=== PATIENT | female | born 1940 | race Caucasian/White ===

== ENCOUNTER → 2017-04-22 | Outpatient (REF) | payer MEDICARE, MEDICAID ==
[2017-04-22 11:52] LABS: MEAN CORPUSCULAR HEMOGLOBIN 28.4 pg (27.0-33.0); MEAN CORPUSCULAR HGB CONC 32.8 g/dl (32.0-36.5); MEAN CORPUSCULAR VOLUME 86.5 fl (80.0-96.0); RED CELL DISTRIBUTION WIDTH 13.6 % (11.5-14.5); WHITE BLOOD COUNT 5.3 K/mm3 (4.0-10.0)
[2017-04-22 12:34] LABS: BLOOD UREA NITROGEN 19 MG/DL (7-18); CREATININE FOR GFR 0.91 MG/DL (0.55-1.02); GLOMERULAR FILTRATION RATE > 60.0 (>39); GLUCOSE, FASTING 231 MG/DL (83-110)
[2017-04-22 12:35] LABS: ALKALINE PHOSPHATASE 67 U/L (45-117); ALT/SGPT 63 U/L (12-78); ANION GAP 8 MEQ/L (8-16); AST/SGOT 55 U/L (15-37); BILIRUBIN,TOTAL 0.6 MG/DL (0.2-1.0); CALCIUM LEVEL 8.8 MG/DL (8.8-10.2); CARBON DIOXIDE LEVEL 25 MEQ/L (21-32); CHLORIDE LEVEL 105 MEQ/L (98-107); CHOLESTEROL LEVEL 113 MG/DL (<200); POTASSIUM SERUM 4.5 MEQ/L (3.5-5.1); SODIUM LEVEL 138 MEQ/L (136-145); TRIGLYCERIDES LEVEL 122 MG/DL (<150)
[2017-04-22 12:36] LABS: ALBUMIN 3.2 GM/DL (3.2-5.2); ALBUMIN/GLOBULIN RATIO 0.94 (1.00-1.93); TOTAL PROTEIN 6.6 GM/DL (6.4-8.2)
== END ==
LOC: M SFHCCLAY 08:15
PROVIDERS: ATTEND Nurse Practitioner Family
DX: E11.8 Type 2 diabetes mellitus with unspecified complications (principal); I10 Essential (primary) hypertension; E78.5 Hyperlipidemia, unspecified; M10.9 Gout, unspecified; E55.9 Vitamin D deficiency, unspecified

== ENCOUNTER → 2017-12-20 | Outpatient (REF) | payer MEDICARE, MEDICAID ==
[2017-12-20 12:00] LABS: ESTIMATED AVERAGE GLUCOSE 197 MG/DL (60-110); HEMOGLOBIN A1c 8.5 %
[2017-12-20 12:09] LABS: TOTAL 25(OH) VITAMIN D 16.1 NG/ML (30.0-100.0)
[2017-12-20 12:32] LABS: CHOLESTEROL LEVEL 105 MG/DL (<200); CHOLESTEROL RISK RATIO 2.763 (<5); HDL CHOLESTEROL 38 MG/DL (>40); NON-HDL-C 67 MG/DL; TRIGLYCERIDES LEVEL 145 MG/DL (<150); URIC ACID 3.5 MG/DL (2.6-6.0)
[2017-12-20 12:49] LABS: MALB URINE SIEMENS 59.8 MG/L; MAU/CREAT RATIO 51.1 MCG/MG (0.0-30.0); TOTAL PROTEIN,RANDOM URINE 12.8 MG/DL (0.0-12.0)
== END ==
LOC: M SFHCCLAY 09:09
DX: E11.8 Type 2 diabetes mellitus with unspecified complications (principal); E78.4 Other hyperlipidemia; M10.9 Gout, unspecified; E55.9 Vitamin D deficiency, unspecified
CPT/HCPCS: 84550

== ENCOUNTER → 2018-04-14 | Outpatient (REF) | payer MEDICARE, MEDICAID ==
[2018-04-14 18:00] LABS: HEMATOCRIT 39.2 % (36.0-47.0); HEMOGLOBIN 12.6 g/dl (12.0-15.5); MEAN CORPUSCULAR HEMOGLOBIN 28.2 pg (27.0-33.0); MEAN CORPUSCULAR HGB CONC 32.1 g/dl (32.0-36.5); MEAN CORPUSCULAR VOLUME 87.7 fl (80.0-96.0); PLATELET COUNT, AUTOMATED 210 10^3/uL (150-450); RED BLOOD COUNT 4.47 10^6/uL (4.00-5.40); RED CELL DISTRIBUTION WIDTH 13.5 % (11.5-14.5); WHITE BLOOD COUNT 5.7 10^3/uL (4.0-10.0)
[2018-04-14 18:46] LABS: ALBUMIN 3.3 GM/DL (3.2-5.2); ALBUMIN/GLOBULIN RATIO 0.87 (1.00-1.93); ALKALINE PHOSPHATASE 80 U/L (45-117); ALT/SGPT 70 U/L (12-78); ANION GAP 7 MEQ/L (8-16); AST/SGOT 72 U/L (7-37); BILIRUBIN,TOTAL 0.5 MG/DL (0.2-1.0); BLOOD UREA NITROGEN 16 MG/DL (7-18); CALCIUM LEVEL 8.6 MG/DL (8.8-10.2); CARBON DIOXIDE LEVEL 25 MEQ/L (21-32); CHLORIDE LEVEL 107 MEQ/L (98-107); CHOLESTEROL LEVEL 99 MG/DL (<200); CHOLESTEROL RISK RATIO 2.828 (<5); CREATININE FOR GFR 0.89 MG/DL (0.55-1.30); GLOMERULAR FILTRATION RATE > 60.0 (>39); GLUCOSE, FASTING 199 MG/DL (70-100); HDL CHOLESTEROL 35 MG/DL (>40); LDL CHOLESTEROL 42.2 MG/DL (<100); NON-HDL-C 64 MG/DL; POTASSIUM SERUM 4.5 MEQ/L (3.5-5.1); SODIUM LEVEL 139 MEQ/L (136-145); TOTAL PROTEIN 7.1 GM/DL (6.4-8.2); TRIGLYCERIDES LEVEL 109 MG/DL (<150); URIC ACID 3.5 MG/DL (2.6-6.0)
[2018-04-14 18:50] LABS: ESTIMATED AVERAGE GLUCOSE 214 MG/DL (60-110); HEMOGLOBIN A1c 9.1 %; TOTAL 25(OH) VITAMIN D 15.8 NG/ML (30.0-100.0)
== END ==
LOC: M SFHCCLAY 10:23
DX: E11.8 Type 2 diabetes mellitus with unspecified complications (principal); I10 Essential (primary) hypertension; E78.5 Hyperlipidemia, unspecified; M10.9 Gout, unspecified; E55.9 Vitamin D deficiency, unspecified; Z79.899 Other long term (current) drug therapy
CPT/HCPCS: 84550

== ENCOUNTER → 2018-07-15 | Outpatient (REF) | payer MEDICARE, MEDICAID | LOC: M SFHCCLAY 13:43 | DX: L03.115 Cellulitis of right lower limb (principal) | CPT/HCPCS: 87186 ==

== ENCOUNTER 2018-11-15 12:21 | Emergency (ER) | payer MEDICARE, MEDICAID ==
[~2018-11-15] VITALS: Ht 162.6 cm; Wt 117.8 kg
[2018-11-15] MEDS ORDERED: ALLO100T PO (12:35)
[2018-11-15] MEDS ORDERED: INVO300T PO (12:35)
[2018-11-15] MEDS ORDERED: METF10004 PO (12:35)
[2018-11-15] MEDS ORDERED: [UNRECOGNIZED DRUG - CODE] PO (12:35)
[2018-11-15] MEDS ORDERED: CALC600T57 PO (12:35)
[2018-11-15] MEDS ORDERED: LOSA50TA88 PO (12:35)
[2018-11-15] MEDS ORDERED: SIMV40TA2 PO (12:35)
[2018-11-15] MEDS ORDERED: HYDR25TAB PO (12:35)
[2018-11-15] MEDS ORDERED: IBUP-1022 PO (13:06)
[2018-11-15] MEDS ORDERED: SOMA350T PO (13:06)
[2018-11-15 13:08] VITALS: BP 200/80
== END 2018-11-15 13:19 | disposition home or self-care (01) ==
LOC: M ED 12:21
DX: M54.12 Radiculopathy, cervical region (principal); E11.9 Type 2 diabetes mellitus without complications; I10 Essential (primary) hypertension

== ENCOUNTER → 2018-11-17 | Outpatient (CLI) | payer MEDICARE, MEDICAID ==
[~2018-11-17] MED LIST: ALLO100T PO; CALC600T57 PO; HYDR25TAB PO; IBUP-1022 PO; INVO300T PO; LOSA50TA88 PO; METF10004 PO; SIMV40TA2 PO; SOMA350T PO; [UNRECOGNIZED DRUG - CODE] PO
--- NOTE | 2018-11-17 14:55 | REP ---
CERVICAL SPINE, EIGHT VIEWS:HISTORY: Fall. The cervical spine is visualized from C1 to C7 in the lateral radiographs. There is no acute fracture or subluxation. The C5-6 and C6-7 intervertebral discs are decreased in height consistent with disc degeneration. Osteophytes are present on C4 through 7. There is narrowing of the right C5 and 6 neural foramina secondary to uncinate process hypertrophy. The left neural foramina are poorly seen. IMPRESSION:Degenerative change as described above.
--- NOTE | 2018-11-17 14:57 | REP ---
LEFT HUMERUS, THREE VIEWS: HISTORY: Fall. There is no acute fracture or dislocation. There is narrowing of the shoulder joint spaces. Osteophytes are present at the acromioclavicular joint and on the posterior ulna. IMPRESSION: There is no acute fracture or dislocation.
== END ==
LOC: M CLY 14:11
PROVIDERS: ATTEND Nurse Practitioner Family
DX: M50.322 Other cervical disc degeneration at C5-C6 level (principal); M50.323 Other cervical disc degeneration at C6-C7 level; M25.78 Osteophyte, vertebrae; M25.712 Osteophyte, left shoulder; S49.92XD Unspecified injury of left shoulder and upper arm, subsequent encounter
CPT/HCPCS: 72050; 73060; G0463

== ENCOUNTER → 2019-01-03 | Outpatient (REF) | payer MEDICARE, MEDICAID ==
[2019-01-03 18:27] LABS: ALBUMIN 3.3 GM/DL (3.2-5.2); ALT/SGPT 55 U/L (12-78); BILIRUBIN,TOTAL 0.4 MG/DL (0.2-1.0); BLOOD UREA NITROGEN 20 MG/DL (7-18); CARBON DIOXIDE LEVEL 25 MEQ/L (21-32); CHLORIDE LEVEL 106 MEQ/L (98-107); CREATININE FOR GFR 0.76 MG/DL (0.55-1.30); GLOMERULAR FILTRATION RATE > 60.0 (>39); GLUCOSE, FASTING 157 MG/DL (70-100); POTASSIUM SERUM 4.6 MEQ/L (3.5-5.1); SODIUM LEVEL 138 MEQ/L (136-145); TOTAL PROTEIN 7.2 GM/DL (6.4-8.2)
== END ==
LOC: M SFHCCLAY 12:19
PROVIDERS: ATTEND Nurse Practitioner Family
DX: S19.9XXD Unspecified injury of neck, subsequent encounter (principal)
CPT/HCPCS: 80053; G0463

== ENCOUNTER → 2019-04-25 | Outpatient (REF) | payer MEDICARE, MEDICAID ==
[~2019-04-25] MED LIST changes: +FENO54TA14 PO; -[UNRECOGNIZED DRUG - CODE] PO
[2019-04-25 13:16] LABS: CREATININE, URINE 99.3 MG/DL; MALB URINE SIEMENS 94.3 MG/L; MAU/CREAT RATIO 94.9 MCG/MG (0.0-30.0)
[2019-04-25 13:28] LABS: ALBUMIN 2.9 GM/DL (3.2-5.2); ALT/SGPT 66 U/L (12-78); BILIRUBIN,TOTAL 0.4 MG/DL (0.2-1.0); BLOOD UREA NITROGEN 16 MG/DL (7-18); CALCIUM LEVEL 8.4 MG/DL (8.8-10.2); CARBON DIOXIDE LEVEL 23 MEQ/L (21-32); CHLORIDE LEVEL 109 MEQ/L (98-107); CHOLESTEROL LEVEL 96 MG/DL (<200); CHOLESTEROL RISK RATIO 2.909 (<5); CREATININE FOR GFR 0.78 MG/DL (0.55-1.30); GLOMERULAR FILTRATION RATE > 60.0 (>39); GLUCOSE, FASTING 156 MG/DL (70-100); HDL CHOLESTEROL 33 MG/DL (>40); LDL CHOLESTEROL 42 MG/DL (<100); NON-HDL-C 63 MG/DL; POTASSIUM SERUM 4.5 MEQ/L (3.5-5.1); SODIUM LEVEL 140 MEQ/L (136-145); TOTAL 25(OH) VITAMIN D 15.2 NG/ML (30.0-100.0); TRIGLYCERIDES LEVEL 106 MG/DL (<150); URIC ACID 3.7 MG/DL (2.6-6.0)
[2019-04-25 14:26] LABS: HEMOGLOBIN A1c 8.3 %
== END ==
LOC: M SFHCCLAY 07:44
PROVIDERS: ATTEND Nurse Practitioner Family
DX: E11.8 Type 2 diabetes mellitus with unspecified complications (principal); E78.5 Hyperlipidemia, unspecified; M10.9 Gout, unspecified; E55.9 Vitamin D deficiency, unspecified

== ENCOUNTER → 2019-05-04 | Outpatient (CLI) | payer MEDICARE, MEDICAID ==
--- NOTE | 2019-05-04 09:25 | REP ---
RIGHT UPPER QUADRANT ULTRASOUND: Real-time sonographic evaluation of the right upper quadrant performed. Gallbladder has been surgically removed. There is no intrahepatic or extrahepatic biliary dilatation, common bile duct measuring 6 mm. The liver is enlarged measuring 22 cm in the midclavicular line, no gross mass. There is increased echotexture diffusely suggesting diffuse fibrofatty infiltration. Visualized pancreas is grossly unremarkable and not optimally visualized due to overlying bowel gas. Right kidney demonstrates no hydronephrosis with normal size 10.8 cm in length. No ascites is seen. IMPRESSION: Status post cholecystectomy without biliary dilatation or free fluid. Hepatomegaly, length of the liver is 22 cm, with findings compatible with diffuse fibrofatty infiltration. Electronically Signed by Suraj Dorman MD 05/04/2019 09:27 A
== END ==
LOC: M RAD 07:59
PROVIDERS: ATTEND Nurse Practitioner Family
DX: R16.0 Hepatomegaly, not elsewhere classified (principal); R94.5 Abnormal results of liver function studies

== ENCOUNTER → 2019-10-09 | Outpatient (CLI) | payer MEDICARE, MEDICAID | LOC: M RAD 06:45 | PROVIDERS: ATTEND Nurse Practitioner Family | DX: Z13.6 Encounter for screening for cardiovascular disorders (principal); Z79.899 Other long term (current) drug therapy; R93.9 Diagnostic imaging inconclusive due to excess body fat of patient ==

== ENCOUNTER → 2019-12-25 | Outpatient (REF) | payer MEDICARE, MEDICAID ==
[~2019-12-25] MED LIST changes: -SIMV40TA2 PO; +SIMV40TA20 PO
== END ==
LOC: M LAB REF 11:48
PROVIDERS: ATTEND Surgery
DX: L72.3 Sebaceous cyst (principal)

== ENCOUNTER → 2020-01-23 | Outpatient (REF) | payer MEDICARE, MEDICAID ==
[2020-01-23 12:20] LABS: ALBUMIN 3.1 GM/DL (3.2-5.2); BILIRUBIN,DIRECT 0.2 MG/DL (0.0-0.2); BILIRUBIN,TOTAL 0.4 MG/DL (0.2-1.0); CHOLESTEROL RISK RATIO 3.121 (<5); TOTAL 25(OH) VITAMIN D 20.3 NG/ML (30.0-100.0); TOTAL PROTEIN 7.3 GM/DL (6.4-8.2)
[2020-01-23 12:43] LABS: MAU/CREAT RATIO 145.5 MCG/MG (0.0-30.0)
[2020-01-23 19:31] LABS: HEMOGLOBIN A1c 7.3 %
== END ==
LOC: M SFHCCLAY 08:23
PROVIDERS: ATTEND Nurse Practitioner Family
DX: E11.8 Type 2 diabetes mellitus with unspecified complications (principal); E78.5 Hyperlipidemia, unspecified; M10.9 Gout, unspecified; E55.9 Vitamin D deficiency, unspecified; Z79.899 Other long term (current) drug therapy

== ENCOUNTER → 2020-05-07 | Outpatient (REF) | payer MEDICARE, MEDICAID ==
[2020-05-07 16:24] LABS: ALBUMIN 3.1 GM/DL (3.2-5.2); ALT/SGPT 56 U/L (12-78); BILIRUBIN,TOTAL 0.9 MG/DL (0.2-1.0); BLOOD UREA NITROGEN 18 MG/DL (7-18); CALCIUM LEVEL 9.2 MG/DL (8.8-10.2); CARBON DIOXIDE LEVEL 26 MEQ/L (21-32); CHLORIDE LEVEL 106 MEQ/L (98-107); CHOLESTEROL LEVEL 134 MG/DL (<200); CHOLESTEROL RISK RATIO 4.322 (<5); CREATININE FOR GFR 0.83 MG/DL (0.55-1.30); GLOMERULAR FILTRATION RATE > 60.0 (>39); GLUCOSE, FASTING 136 MG/DL (70-100); HDL CHOLESTEROL 31 MG/DL (>40); LDL CHOLESTEROL 78 MG/DL (<100); NON-HDL-C 103 MG/DL; POTASSIUM SERUM 4.1 MEQ/L (3.5-5.1); SODIUM LEVEL 137 MEQ/L (136-145); TOTAL PROTEIN 7.7 GM/DL (6.4-8.2); TRIGLYCERIDES LEVEL 124 MG/DL (<150)
[2020-05-07 16:28] LABS: HEMATOCRIT 40.5 % (36.0-47.0); HEMOGLOBIN 12.8 g/dl (12.0-15.5); MEAN CORPUSCULAR HEMOGLOBIN 28.3 pg (27.0-33.0); MEAN CORPUSCULAR HGB CONC 31.6 g/dl (32.0-36.5); MEAN CORPUSCULAR VOLUME 89.4 fl (80.0-96.0); PLATELET COUNT, AUTOMATED 203 10^3/uL (150-450); RED BLOOD COUNT 4.53 10^6/uL (4.00-5.40); WHITE BLOOD COUNT 4.9 10^3/uL (4.0-10.0)
[2020-05-08 08:51] LABS: TOTAL 25(OH) VITAMIN D 20.6 NG/ML (30.0-100.0)
== END ==
LOC: M SFHCCLAY 10:35
PROVIDERS: ATTEND Nurse Practitioner Family
DX: I10 Essential (primary) hypertension (principal); E11.8 Type 2 diabetes mellitus with unspecified complications; E78.5 Hyperlipidemia, unspecified; M10.9 Gout, unspecified; E55.9 Vitamin D deficiency, unspecified
CPT/HCPCS: 80053; 80061; 82306; 83036; 84550; 85027; G0463

== ENCOUNTER → 2021-04-16 | Outpatient (REF) | payer MEDICARE, MEDICAID ==
[~2021-04-16] MED LIST changes: +HYDR-3490 PO; -HYDR25TAB PO
[2021-04-16 11:43] LABS: HEMATOCRIT 36.5 % (36.0-47.0); HEMOGLOBIN 11.7 g/dl (12.0-15.5); MEAN CORPUSCULAR HEMOGLOBIN 29.8 pg (27.0-33.0); MEAN CORPUSCULAR HGB CONC 32.1 g/dl (32.0-36.5); MEAN CORPUSCULAR VOLUME 93.1 fl (80.0-96.0); PLATELET COUNT, AUTOMATED 183 10^3/uL (150-450); RED BLOOD COUNT 3.92 10^6/uL (4.00-5.40); WHITE BLOOD COUNT 4.1 10^3/uL (4.0-10.0)
[2021-04-16 12:04] LABS: HEMOGLOBIN A1c 5.7 %
[2021-04-16 12:24] LABS: ALBUMIN 2.5 GM/DL (3.2-5.2); ALT/SGPT 51 U/L (12-78); BILIRUBIN,TOTAL 0.9 MG/DL (0.2-1.0); BLOOD UREA NITROGEN 13 MG/DL (7-18); CALCIUM LEVEL 8.4 MG/DL (8.8-10.2); CARBON DIOXIDE LEVEL 25 MEQ/L (21-32); CHLORIDE LEVEL 110 MEQ/L (98-107); CHOLESTEROL LEVEL 88 MG/DL (<200); CHOLESTEROL RISK RATIO 2.838 (<5); CREATININE FOR GFR 0.76 MG/DL (0.55-1.30); GLOMERULAR FILTRATION RATE > 60.0 (>39); GLUCOSE, FASTING 120 MG/DL (70-100); HDL CHOLESTEROL 31 MG/DL (>40); LDL CHOLESTEROL 43 MG/DL (<100); NON-HDL-C 57 MG/DL; SODIUM LEVEL 141 MEQ/L (136-145); TOTAL PROTEIN 6.9 GM/DL (6.4-8.2); TRIGLYCERIDES LEVEL 71 MG/DL (<150)
[2021-04-16 12:35] LABS: MALB URINE SIEMENS 56.1 MG/L; MAU/CREAT RATIO 47.9 MCG/MG (0.0-30.0)
[2021-04-16 13:13] LABS: TOTAL 25(OH) VITAMIN D 17.7 NG/ML (30.0-100.0)
== END ==
LOC: M SFHCCLAY 08:32
PROVIDERS: ATTEND Nurse Practitioner Family
DX: E11.8 Type 2 diabetes mellitus with unspecified complications (principal); E78.5 Hyperlipidemia, unspecified; M10.9 Gout, unspecified; I10 Essential (primary) hypertension; L71.9 Rosacea, unspecified; Z79.899 Other long term (current) drug therapy

== ENCOUNTER → 2021-05-01 | Outpatient (REF) | payer MEDICARE, MEDICAID ==
[2021-05-01 16:56] LABS: ALBUMIN 2.5 GM/DL (3.2-5.2); BLOOD UREA NITROGEN 13 MG/DL (7-18); CALCIUM LEVEL 8.3 MG/DL (8.8-10.2); CARBON DIOXIDE LEVEL 25 MEQ/L (21-32); CHLORIDE LEVEL 110 MEQ/L (98-107); CREATININE FOR GFR 0.72 MG/DL (0.55-1.30); GLOMERULAR FILTRATION RATE > 60.0 (>39); GLUCOSE, FASTING 146 MG/DL (70-100); PHOSPHORUS LEVEL 2.9 MG/DL (2.5-4.9); POTASSIUM SERUM 4.1 MEQ/L (3.5-5.1); SODIUM LEVEL 140 MEQ/L (136-145)
== END ==
LOC: M SFHCCLAY 10:31
PROVIDERS: ATTEND Nurse Practitioner Family
DX: I10 Essential (primary) hypertension (principal)
CPT/HCPCS: 80069; G0463

== ENCOUNTER → 2021-05-20 | Outpatient (POV) | payer MEDICARE, MEDICAID ==
[~2021-05-20] VITALS: Ht 160 cm; Wt 115.4 kg
[2021-05-20 09:20] VITALS: BP 164/72
--- NOTE | 2021-05-22 13:58 | IRCOV ---
[facility] IR Consult Office Visit IR Consult Office Visit DATE: May 20, 2021 REASON FOR CONSULTATION/CHIEF COMPLAINT: Burning pain on bottom of both feet. HISTORY OF PRESENT ILLNESS: 81-year-old female with diabetes, hypertension and gout, complains of burning and painful sensation at the bottom of both her feet. She states her right leg is worse than her left leg. She states this is constant with no aggravating or relieving factors. She describes that she previously had a right lower extremity vein ablated in 2013 in [place]. This did not change her symptoms at all. She states she feels better when she is standing on her feet. She is not very ambulatory. She walks with a walker. She denies rest pain with leg elevation or intermittent claudication. She denies prior ulcer, cold leg, gangrene or amputations. She is not a smoker. Patient denies chest pain, shortness of breath, orthopnea or paroxysmal nocturnal dyspnea. No prior heart attack or stroke. ALLERGIES: Please see below. HOME MEDICATIONS: Please see below. PAST MEDICAL HISTORY: Diabetes Hypertension Gout Arthritis Fatty liver PAST SURGICAL HISTORY: Gallbladder surgery Ventral hernia repair Left arm sebaceous cyst removal FAMILY HISTORY: Noncontributory. SOCIAL HISTORY: Nonsmoker. Denies alcohol or drugs. REVIEW OF SYSTEMS: Otherwise negative. PHYSICAL EXAMINATION: VITAL SIGNS: Please see below. GENERAL APPEARANCE: Appears well. Comfortable at rest. HEENT: No scleral icterus. RESPIRATORY: Normal breathing at rest. CARDIOVASCULAR: Normal rate. ABDOMEN: Obese. Soft nontender. EXTREMITIES: Left lower extremity: warm to touch. Normal color. Femoral pulse + Good popliteal pulse 2+ DP/PT 1+. Motor 4 out of 5. Sensation intact. No ulcers. No gangrene. Right lower extremity: Normal color and temperature. Femoral pulse 2+ popliteal pulses 2+ DP/PT +. Motor 4 out of 5. Sensation intact. No ulcers. No gangrene. NEUROLOGICAL: Alert and oriented. PSYCHIATRIC: Appropriate to circumstance. LABORATORY DATA: 04/16/2021 hemoglobin 11.7 hematocrit 36.5 WBC 4.1 platelets 183 sodium 140 potassium 4.1 BUN 13 creatinine 0.72 GFR greater than 60 hemoglobin A1c 5.7 LDL 43 Imaging: No pertinent imaging available. ASSESSMENT/PLAN: 81-year-old diabetic female, complaining of right greater than left, lower extremity pain and burning sensation at the bottom of her feet. Arterial examination appears unremarkable. She is known to have prior saphenous vein reflux, which was reportedly treated, without any change in symptomatology. She not interested in any further workup for venous insufficiency. The burning pain may be related to her diabetes and/or plantar fasciitis. No clinical indication at present for further arterial or venous intervention. I spent 30 minutes reviewing patient's records and in consultation with the patient. Thank you for this referral. Cc Ginette Sandoval CLINICAL PSYCHOLOGY PROFESSOR Allergies Coded Allergies: No Known Allergies (Verified , 05/21/03) Uncoded Allergies: NKA (Allergy, Unknown, 05/21/03) Home Medications Scheduled Allopurinol (Allopurinol), 1 TAB PO DAILY, (Reported) Calcium Carbonate/Vitamin D3 (Calcium 600-Vit D3 200 Tablet), 1 TAB PO DAILY, (Reported) Canagliflozin (Invokana), 1 TAB PO DAILY, (Reported) Fenofibrate (Fenofibrate), 160 MG PO DAILY, (Reported) Hydrochlorothiazide (Hydrochlorothiazide), 1 TAB PO DAILY, (Reported) Losartan Potassium (Losartan Potassium), 1 TAB PO DAILY, (Reported) Metformin HCl (Metformin HCl), 1 TAB PO BID, (Reported) Simvastatin (Simvastatin), 1 TAB PO QPM, (Reported) Scheduled PRN Carisoprodol (Soma), 350 MG PO Q8HP PRN for PAIN Ibuprofen (Ibuprofen), 600 MG PO Q6H PRN for PAIN VS, I&O, 24H, Fishbone Vital Signs/I&O Vital Signs Date Time Temp Pulse Resp B/P (MAP) Pulse Ox O2 Delivery O2 Flow Rate FiO2 05/20/21 09:20 97.9 63 18 164/72 (102) 96 Room Air GABRIEL GUZMÁN MD May 22, 2021 13:58
== END ==
LOC: M IRPOV 09:09
PROVIDERS: ATTEND Radiology Diagnostic Radiology
DX: I87.2 Venous insufficiency (chronic) (peripheral) (principal); E11.9 Type 2 diabetes mellitus without complications; I10 Essential (primary) hypertension; M10.9 Gout, unspecified; M12.9 Arthropathy, unspecified; K76.0 Fatty (change of) liver, not elsewhere classified; R20.2 Paresthesia of skin; Z79.84 Long term (current) use of oral hypoglycemic drugs; Z79.899 Other long term (current) drug therapy

== ENCOUNTER → 2021-11-26 | Outpatient (REF) | payer MEDICARE, MEDICAID ==
[~2021-11-26] MED LIST changes: +ALLO300T2 PO; +ATEN50TA2 PO; +CALC1TAB30 PO; +FENO160T10 PO; +LOSA50TA28 PO; -LOSA50TA88 PO; +METF-877 PO; +TRAD5TAB PO
== END ==
LOC: M SFHCCLAY 14:14
PROVIDERS: ATTEND Physician Assistant
DX: R53.83 Other fatigue (principal); E11.8 Type 2 diabetes mellitus with unspecified complications; E78.5 Hyperlipidemia, unspecified; M10.9 Gout, unspecified; E55.9 Vitamin D deficiency, unspecified
CPT/HCPCS: 80053; 80061; 82306; 83036; 84439; 84443; 84550; 85025; G0463

== ENCOUNTER → 2021-12-02 | Outpatient (CLI) | payer MEDICARE, MEDICAID ==
[~2021-12-02] MED LIST changes: +GASTROGRAFIN SOLUTION 30ML (Q9963) As Ordered ONE; +ISOVUE-370 76% 100ML VIAL As Ordered ONE
[2021-12-02 15:36] LABS: BASO % 0.2 % (0.0-1.0); EOS % 0.2 % (0.0-3.0); HEMATOCRIT 35.6 % (36.0-47.0); HEMOGLOBIN 12.1 g/dl (12.0-15.5); LYMPH # 0.7 10^3/uL (1.5-5.0); LYMPH % 16.9 % (24.0-44.0); MEAN CORPUSCULAR HEMOGLOBIN 30.8 pg (27.0-33.0); MEAN CORPUSCULAR VOLUME 90.6 fl (80.0-96.0); MONO # 0.6 10^3/uL (0.0-0.8); MONO % 15.4 % (2.0-8.0); NEUTROPHILS # 2.8 10^3/uL (1.5-8.5); NEUTROPHILS % 66.6 % (36.0-66.0); PLATELET COUNT, AUTOMATED 118 10^3/uL (150-450); RED BLOOD COUNT 3.93 10^6/uL (4.00-5.40); WHITE BLOOD COUNT 4.2 10^3/uL (4.0-10.0)
== END ==
LOC: M RAD 14:04
PROVIDERS: ATTEND Physician Assistant
DX: R18.8 Other ascites (principal); D70.9 Neutropenia, unspecified
CPT/HCPCS: 36415; 74177; 85025; 87389; Q9963; Q9967

== ENCOUNTER 2021-12-03 19:40 | Inpatient (IN) | payer MEDICARE, MEDICAID ==
[~2021-12-03] VITALS: Ht 167.6 cm; Wt 112.3 kg
[~2021-12-03 19:40] MED LIST changes: -ALLO300T2 PO; -ATEN50TA2 PO; -CALC1TAB30 PO; -FENO160T10 PO; -GASTROGRAFIN SOLUTION 30ML (Q9963) As Ordered ONE; -ISOVUE-370 76% 100ML VIAL As Ordered ONE; -METF-877 PO; -TRAD5TAB PO
[2021-12-03] MEDS: METOPROLOL 5 MG/5 ML VIAL IV SCH ×3 (20:55→22:22)
[2021-12-03 21:13] LABS: BASO % 0.2 % (0.0-1.0); EOS % 0.7 % (0.0-3.0); HEMATOCRIT 35.4 % (36.0-47.0); HEMOGLOBIN 12.1 g/dl (12.0-15.5); LYMPH # 0.5 10^3/uL (1.5-5.0); LYMPH % 9.2 % (24.0-44.0); MEAN CORPUSCULAR HEMOGLOBIN 30.7 pg (27.0-33.0); MEAN CORPUSCULAR HGB CONC 34.2 g/dl (32.0-36.5); MEAN CORPUSCULAR VOLUME 89.8 fl (80.0-96.0); MONO # 0.5 10^3/uL (0.0-0.8); MONO % 8.3 % (2.0-8.0); NEUTROPHILS # 4.8 10^3/uL (1.5-8.5); NEUTROPHILS % 80.9 % (36.0-66.0); PLATELET COUNT, AUTOMATED 107 10^3/uL (150-450); RED BLOOD COUNT 3.94 10^6/uL (4.00-5.40); WHITE BLOOD COUNT 5.9 10^3/uL (4.0-10.0)
[2021-12-03 21:26] LABS: INR 1.36; PROTHROMBIN TIME 17.2 SECONDS (12.7-14.5)
[2021-12-03 21:27] LABS: PARTIAL THROMBOPLASTIN TIME 44.2 SECONDS (25.9-37.0)
[2021-12-03 21:45] LABS: ALBUMIN 2.4 GM/DL (3.2-5.2); BILIRUBIN,DIRECT 1.3 MG/DL (0.0-0.2); BILIRUBIN,TOTAL 1.9 MG/DL (0.2-1.0); CALCIUM LEVEL 8.3 MG/DL (8.8-10.2); CREATININE FOR GFR 1.43 MG/DL (0.55-1.30); GLOMERULAR FILTRATION RATE 37.7 (>39); MAGNESIUM LEVEL 1.6 MG/DL (1.8-2.4); POTASSIUM SERUM 3.2 MEQ/L (3.5-5.1); TOTAL PROTEIN 6.8 GM/DL (6.4-8.2)
[2021-12-03 21:57] LABS: CK-MB VALUE MASS 2.6 NG/ML (<3.6); MB/CK RELATIVE INDEX 2.3 (< OR =4)
[2021-12-03] MEDS ORDERED: POTASSIUM CHLORIDE 10% LIQ 20 MEQ/15 ML UDC PO ONE (22:15)
[2021-12-03] MEDS ORDERED: MAGNESIUM OXIDE 400MG TAB (MAG-OX) PO ONE (22:15)
[2021-12-03] MEDS ORDERED: GLUCOSE 4GM CHEW TABLET PO PRN (23:00)
[2021-12-03] MEDS ORDERED: GLUCAGON INJ 1MG VIAL SC PRN (23:00)
[2021-12-03] MEDS ORDERED: HEPARIN SOD (PORCINE) 5000UNITS/ML 1ML VIAL/SYRINGE IV PRN (23:00)
[2021-12-03] MEDS ORDERED: DEXTROSE 50% 50 ML SYRINGE IV PRN (23:00)
[2021-12-03 23:25] LABS: FIBRINOGEN 156 MG/DL (268-480)
[2021-12-03] MEDS ORDERED: HYDR-3490 PO (23:25)
[2021-12-03] MEDS ORDERED: ATEN50TA2 PO (23:25)
[2021-12-03] MEDS ORDERED: CALC1TAB30 PO (23:25)
[2021-12-03] MEDS ORDERED: ALLO300T2 PO (23:25)
[2021-12-03] MEDS ORDERED: FENO160T10 PO (23:25)
[2021-12-03] MEDS ORDERED: METF-877 PO (23:25)
[2021-12-03] MEDS ORDERED: TRAD5TAB PO (23:25)
[2021-12-03] MEDS ORDERED: HOME MED LIST COMPLETE! XX SCH (23:30)
[2021-12-03] MEDS ORDERED: HEPARIN DRIP 25,000 UNITS in IV 1 EA IV SCH (23:30)
[2021-12-03] MEDS ORDERED: cefTRIAXone SOD 1 GM in D5W MINI-BAG PLUS 50 ML IV ONE (23:30)
[2021-12-03 23:54] LABS: C REACTIVE PROTEIN QUANTITATIV 11.3 MG/DL (0.00-0.30)
[2021-12-04] VITALS (31 sets, daily range): BP systolic 69–144; BP diastolic 48–92
[2021-12-04 00:04] LABS: D-DIMER QUANT > 4000.00 ng/ml (<500)
[2021-12-04] MEDS ORDERED: DIGOXIN INJ 0.5 MG/2 ML AMP (J1160) IV STA (00:26)
[2021-12-04 01:06] LABS: CK-MB VALUE MASS 2.1 NG/ML (<3.6); MB/CK RELATIVE INDEX 2.33 (< OR =4)
[2021-12-04] MEDS ORDERED: NS 1,000 ML IV SCH (01:50)
[2021-12-04] MEDS ORDERED: NS 250 ML IV ONE ×2 (04:15→04:45)
[2021-12-04] MEDS ORDERED: NS 500 ML IV ONE ×2 (05:10→14:10)
[2021-12-04] MEDS ORDERED: diltiaZEM 125 MG in NS 100 ML IV SCH (06:00)
[2021-12-04 07:00] LABS: HEMATOCRIT 36.1 % (36.0-47.0); HEMOGLOBIN 12.3 g/dl (12.0-15.5); MEAN CORPUSCULAR HEMOGLOBIN 30.7 pg (27.0-33.0); MEAN CORPUSCULAR HGB CONC 34.1 g/dl (32.0-36.5); PLATELET COUNT, AUTOMATED 114 10^3/uL (150-450); RED BLOOD COUNT 4.01 10^6/uL (4.00-5.40); WHITE BLOOD COUNT 8.9 10^3/uL (4.0-10.0)
[2021-12-04 07:15] LABS: CALCIUM LEVEL 7.5 MG/DL (8.8-10.2); CREATININE FOR GFR 1.38 MG/DL (0.55-1.30); GLOMERULAR FILTRATION RATE 39.3 (>39); MAGNESIUM LEVEL 1.5 MG/DL (1.8-2.4); POTASSIUM SERUM 3.2 MEQ/L (3.5-5.1)
[2021-12-04] MEDS: HumaLOG INSULIN (NovoLOG) PER UNIT SC SCH ×4 (07:30→20:25)
[2021-12-04 07:33] LABS: ANISOCYTOSIS 1+; ATYPICAL LYMPH 1 % (0-5); LYMPHOCYTES 2 % (16-44); MONOCYTES 8 % (0-5); NEUTROPHILS 89 % (28-66); PLATELET ESTIMATE DECREASED (NORMAL)
[2021-12-04] MEDS: SPIRONOLACTONE 25 MG TAB PO SCH (08:44)
[2021-12-04] MEDS ORDERED: POTASSIUM CHLORIDE 10MEQ SR TABLET PO ONE (08:45)
[2021-12-04] MEDS ORDERED: DIGOXIN INJ 0.5 MG/2 ML AMP (J1160) IV SCH (08:45)
[2021-12-04] MEDS ORDERED: HEPARIN SOD (PORCINE) 5000UNITS/ML 1ML VIAL/SYRINGE IV PRN (08:45)
[2021-12-04] MEDS ORDERED: FUROSEMIDE 40MG/4ML VIAL (J1940) IV SCH (09:00)
[2021-12-04] MEDS ORDERED: cefTRIAXone SOD 1 GM in D5W MINI-BAG PLUS 50 ML IV SCH (09:00)
[2021-12-04] MEDS: MAG SULF 1GM/100ML (MAG RUN) 1 GM in IV 1 EA IV SCH ×2 (09:21→10:38)
[2021-12-04 09:34] LABS: HEMATOCRIT 36.8 % (36.0-47.0); HEMOGLOBIN 12.6 g/dl (12.0-15.5); MEAN CORPUSCULAR HEMOGLOBIN 30.4 pg (27.0-33.0); MEAN CORPUSCULAR HGB CONC 34.2 g/dl (32.0-36.5); MEAN CORPUSCULAR VOLUME 88.7 fl (80.0-96.0); PLATELET COUNT, AUTOMATED 108 10^3/uL (150-450); RED BLOOD COUNT 4.15 10^6/uL (4.00-5.40); WHITE BLOOD COUNT 10.6 10^3/uL (4.0-10.0)
[2021-12-04] MEDS: HEPARIN DRIP 25,000 UNITS in IV 1 EA IV SCH (10:41)
[2021-12-04] MEDS: PIPERACILLIN/TAZOBACTAM SOD 4.5 GM in D5W MINI-BAG PLUS 50 ML IV SCH ×3 (12:36→23:22)
[2021-12-04] MEDS ORDERED: FUROSEMIDE 100MG/10ML VIAL (J1940) IV ONE (16:30)
[2021-12-04 16:31] LABS: BASO % 0.2 % (0.0-1.0); EOS % 0.1 % (0.0-3.0); HEMATOCRIT 34.1 % (36.0-47.0); HEMOGLOBIN 11.8 g/dl (12.0-15.5); LYMPH # 0.8 10^3/uL (1.5-5.0); LYMPH % 6.3 % (24.0-44.0); MEAN CORPUSCULAR HEMOGLOBIN 30.9 pg (27.0-33.0); MEAN CORPUSCULAR HGB CONC 34.6 g/dl (32.0-36.5); MEAN CORPUSCULAR VOLUME 89.3 fl (80.0-96.0); MONO # 1.2 10^3/uL (0.0-0.8); NEUTROPHILS # 10.8 10^3/uL (1.5-8.5); NEUTROPHILS % 83.2 % (36.0-66.0); PLATELET COUNT, AUTOMATED 125 10^3/uL (150-450); RED BLOOD COUNT 3.82 10^6/uL (4.00-5.40); WHITE BLOOD COUNT 12.9 10^3/uL (4.0-10.0)
[2021-12-04 16:53] LABS: BILIRUBIN,TOTAL 1.9 MG/DL (0.2-1.0); CALCIUM LEVEL 7.7 MG/DL (8.8-10.2); CREATININE FOR GFR 1.45 MG/DL (0.55-1.30); GLOMERULAR FILTRATION RATE 37.1 (>39); MAGNESIUM LEVEL 1.9 MG/DL (1.8-2.4); POTASSIUM SERUM 3.7 MEQ/L (3.5-5.1); TOTAL PROTEIN 6.2 GM/DL (6.4-8.2)
[2021-12-04] MEDS ORDERED: ASPIRIN 81 MG CHEW TABLET PO SCH (16:55)
[2021-12-04 17:41] LABS: HEMOGLOBIN A1c 4.9 %
[2021-12-05] VITALS (48 sets, daily range): BP systolic 81–183; BP diastolic 45–72; O2SAT 90–97
[2021-12-05] MEDS: IPRATROPIUM 0.5MG/ALBUTEROL 2.5MG INH SOL UD 3ML (DUONEB) NEB SCH ×4 (02:57→19:38)
[2021-12-05 03:09] LABS: ABG BASE EXCESS -6.1 (-2.0-2.0); ABG HCO3 18.5 MEQ/L (22.0-26.0); ABG O2 SATURATION 98.4 % (95.0-99.0); ABG PARTIAL PRESSURE CO2 33.7 mmHg (35.0-45.0); ABG PARTIAL PRESSURE O2 126.4 mmHg (75.0-100.0); ABG STANDARD HCO3 19.5 MEQ/L (22.0-26.0); ABG TOTAL CO2 19.6 MEQ/L (23.0-31.0); ABG pH (ARTERIAL) 7.358 UNITS (7.350-7.450)
[2021-12-05 04:05] LABS: BASO % 0.2 % (0.0-1.0); HEMATOCRIT 31.7 % (36.0-47.0); HEMOGLOBIN 10.9 g/dl (12.0-15.5); LYMPH # 0.7 10^3/uL (1.5-5.0); MEAN CORPUSCULAR HEMOGLOBIN 31.1 pg (27.0-33.0); MEAN CORPUSCULAR HGB CONC 34.4 g/dl (32.0-36.5); MEAN CORPUSCULAR VOLUME 90.3 fl (80.0-96.0); MONO # 1.2 10^3/uL (0.0-0.8); MONO % 10.9 % (2.0-8.0); NEUTROPHILS # 8.9 10^3/uL (1.5-8.5); NEUTROPHILS % 82.3 % (36.0-66.0); PLATELET COUNT, AUTOMATED 125 10^3/uL (150-450); RED BLOOD COUNT 3.51 10^6/uL (4.00-5.40); WHITE BLOOD COUNT 10.8 10^3/uL (4.0-10.0)
[2021-12-05 04:08] LABS: INR 1.71; PROTHROMBIN TIME 20.5 SECONDS (12.7-14.5)
[2021-12-05 04:09] LABS: PARTIAL THROMBOPLASTIN TIME 51.9 SECONDS (25.9-37.0)
[2021-12-05 04:23] LABS: BILIRUBIN,DIRECT 1.4 MG/DL (0.0-0.2); BILIRUBIN,TOTAL 1.9 MG/DL (0.2-1.0); CALCIUM LEVEL 7.7 MG/DL (8.8-10.2); CREATININE FOR GFR 1.68 MG/DL (0.55-1.30); GLOMERULAR FILTRATION RATE 31.3 (>39); MAGNESIUM LEVEL 1.9 MG/DL (1.8-2.4); POTASSIUM SERUM 4.1 MEQ/L (3.5-5.1); TOTAL PROTEIN 6.1 GM/DL (6.4-8.2)
[2021-12-05] MEDS: PIPERACILLIN/TAZOBACTAM SOD 4.5 GM in D5W MINI-BAG PLUS 50 ML IV SCH (05:08)
[2021-12-05] MEDS: HumaLOG INSULIN (NovoLOG) PER UNIT SC SCH ×4 (07:26→21:00)
[2021-12-05] MEDS ORDERED: FUROSEMIDE 40MG/4ML VIAL (J1940) IV ONE ×3 (07:30→18:45)
[2021-12-05] MEDS: cefTRIAXone SOD 2 GM in D5W MINI-BAG PLUS 50 ML IV SCH (07:33)
[2021-12-05] MEDS ORDERED: VANCOMYCIN HCL 1,000 MG, VIAL MATE ADAPTER 1 EACH in NS 250 ML IV ONE ×2 (09:00→15:45)
[2021-12-05] MEDS: SPIRONOLACTONE 25 MG TAB PO SCH (09:38)
[2021-12-05 10:13] LABS: SPEC. GRAVITY BODY FLUIDS 1.018 (NOT ESTABLISHED)
[2021-12-05 10:24] LABS: APPEARANCE, BODY FLUID HAZY (CLEAR); ASCITES FL COLOR YELLOW (COLORLESS); SOURCE, BODY FLUID ASCITES
[2021-12-05 10:36] LABS: SOURCE, BODY FLUID ALBUMIN ASCITES; SOURCE, BODY FLUID GLUCOSE ASCITES; SOURCE, BODY FLUID TOT PROTEIN ASCITES; TOTAL PROTEIN, BODY FLUID 2.6 G/DL (NOT ESTABLISHED)
[2021-12-05] MEDS ORDERED: NYSTATIN 100,000 UNITS/GM TOPICAL PWD 15 GM TOP PRN (12:10)
[2021-12-05] MEDS: HEPARIN DRIP 25,000 UNITS in IV 1 EA IV SCH (14:10)
[2021-12-05 17:16] LABS: HEPATITIS B SURFACE ANTIGEN NEGATIVE (NEGATIVE); HEPATITIS C VIRUS ABY INDEX < 0.0 INDEX (<0.8)
[2021-12-05 17:32] LABS: BASO % 0.1 % (0.0-1.0); HEMATOCRIT 29.8 % (36.0-47.0); HEMOGLOBIN 10.3 g/dl (12.0-15.5); LYMPH # 0.6 10^3/uL (1.5-5.0); LYMPH % 8.6 % (24.0-44.0); MEAN CORPUSCULAR HEMOGLOBIN 30.9 pg (27.0-33.0); MEAN CORPUSCULAR HGB CONC 34.6 g/dl (32.0-36.5); MEAN CORPUSCULAR VOLUME 89.5 fl (80.0-96.0); MONO # 0.6 10^3/uL (0.0-0.8); MONO % 8.9 % (2.0-8.0); NEUTROPHILS # 5.7 10^3/uL (1.5-8.5); NEUTROPHILS % 81.4 % (36.0-66.0); PLATELET COUNT, AUTOMATED 114 10^3/uL (150-450); RED BLOOD COUNT 3.33 10^6/uL (4.00-5.40)
[2021-12-05] MEDS: dexameTHASONE 4 MG/ML 1ML VIAL (J1100 PER 1MG) IV SCH (17:53)
[2021-12-05] MEDS ORDERED: REMDESIVIR 200 MG in NS 250 ML IV ONE (18:00)
[2021-12-05] MEDS ORDERED: IPRATROPIUM 0.5MG/ALBUTEROL 2.5MG INH SOL UD 3ML (DUONEB) NEB ONE ×2 (18:20→18:30)
[2021-12-05] MEDS ORDERED: FUROSEMIDE 20MG/2ML VIAL (J1940) As Ordered ONE (18:34)
[2021-12-05 18:48] LABS: ABG BASE EXCESS -5.3 (-2.0-2.0); ABG HCO3 19.6 MEQ/L (22.0-26.0); ABG O2 SATURATION 91.2 % (95.0-99.0); ABG PARTIAL PRESSURE CO2 36.2 mmHg (35.0-45.0); ABG PARTIAL PRESSURE O2 63.8 mmHg (75.0-100.0); ABG TOTAL CO2 20.7 MEQ/L (23.0-31.0); ABG pH (ARTERIAL) 7.352 UNITS (7.350-7.450)
[2021-12-05] MEDS ORDERED: SODIUM CHLORIDE 0.9% INJ 10 ML SYR IV ONE (20:00)
[2021-12-05] MEDS ORDERED: AMIODARONE HCL 150 MG in IV 1 EA IV STA (20:11)
[2021-12-05] MEDS ORDERED: APIXABAN 5 MG TAB (ELIQUIS) PO SCH (21:00)
[2021-12-05 21:29] LABS: ALBUMIN 2.7 GM/DL (3.2-5.2); BILIRUBIN,TOTAL 1.8 MG/DL (0.2-1.0); CALCIUM LEVEL 7.9 MG/DL (8.8-10.2); CREATININE FOR GFR 1.69 MG/DL (0.55-1.30); GLOMERULAR FILTRATION RATE 31.1 (>39); POTASSIUM SERUM 3.8 MEQ/L (3.5-5.1); TOTAL PROTEIN 6.7 GM/DL (6.4-8.2)
[2021-12-06] VITALS (24 sets, daily range): BP systolic 105–145; BP diastolic 52–87; O2SAT 94–99
[2021-12-06] MEDS: IPRATROPIUM 0.5MG/ALBUTEROL 2.5MG INH SOL UD 3ML (DUONEB) NEB SCH ×3 (01:19→21:59)
[2021-12-06 05:13] LABS: BASO % 0.3 % (0.0-1.0); HEMATOCRIT 30.3 % (36.0-47.0); HEMOGLOBIN 10.4 g/dl (12.0-15.5); LYMPH # 0.6 10^3/uL (1.5-5.0); LYMPH % 8.6 % (24.0-44.0); MEAN CORPUSCULAR HGB CONC 34.3 g/dl (32.0-36.5); MEAN CORPUSCULAR VOLUME 90.4 fl (80.0-96.0); MONO # 0.5 10^3/uL (0.0-0.8); MONO % 7.1 % (2.0-8.0); NEUTROPHILS # 6.2 10^3/uL (1.5-8.5); NEUTROPHILS % 82.7 % (36.0-66.0); PLATELET COUNT, AUTOMATED 159 10^3/uL (150-450); RED BLOOD COUNT 3.35 10^6/uL (4.00-5.40); WHITE BLOOD COUNT 7.5 10^3/uL (4.0-10.0)
[2021-12-06 05:24] LABS: INR 1.65; PROTHROMBIN TIME 19.9 SECONDS (12.7-14.5)
[2021-12-06 05:25] LABS: FIBRINOGEN 166 MG/DL (268-480); PARTIAL THROMBOPLASTIN TIME 59.8 SECONDS (25.9-37.0)
[2021-12-06 05:40] LABS: C REACTIVE PROTEIN QUANTITATIV 17.6 MG/DL (0.00-0.30); CALCIUM LEVEL 7.6 MG/DL (8.8-10.2); CREATININE FOR GFR 1.75 MG/DL (0.55-1.30); GLOMERULAR FILTRATION RATE 29.8 (>39); POTASSIUM SERUM 4.1 MEQ/L (3.5-5.1)
[2021-12-06 05:53] LABS: D-DIMER QUANT > 4000.00 ng/ml (<500)
[2021-12-06] MEDS: HumaLOG INSULIN (NovoLOG) PER UNIT SC SCH ×4 (07:30→20:11)
[2021-12-06] MEDS: cefTRIAXone SOD 2 GM in D5W MINI-BAG PLUS 50 ML IV SCH (08:08)
[2021-12-06] MEDS: SPIRONOLACTONE 25 MG TAB PO SCH (08:08)
[2021-12-06] MEDS: dexameTHASONE 4 MG/ML 1ML VIAL (J1100 PER 1MG) IV SCH (08:08)
[2021-12-06] MEDS ORDERED: AMIODARONE HCL 150 MG in IV 1 EA IV ONE (10:25)
[2021-12-06] MEDS: LORazepam 0.5 MG TAB PO PRN ×3 (10:42→20:15)
[2021-12-06 12:53] LABS: INR 1.62; PROTHROMBIN TIME 19.7 SECONDS (12.7-14.5)
[2021-12-06 12:54] LABS: PARTIAL THROMBOPLASTIN TIME 53.2 SECONDS (25.9-37.0)
[2021-12-06] MEDS ORDERED: LORazepam 2 MG/ML VIAL IV STA (13:07)
[2021-12-06] MEDS ORDERED: HALOPERIDOL 5MG/ML VIAL (J1630 PER 1) IM STA (13:07)
[2021-12-06] MEDS ORDERED: VANCOMYCIN HCL 1,000 MG, VIAL MATE ADAPTER 1 EACH in NS 250 ML IV SCH (14:00)
[2021-12-06] MEDS ORDERED: AMIODARONE HCL 150 MG in IV 1 EA IV STA ×2 (14:18→19:03)
[2021-12-06 17:09] LABS: MYCOPLASMA PNEUMONIAE IgG 196 U/mL (0-99); MYCOPLASMA PNEUMONIAE IgM <770 U/mL (0-769)
[2021-12-06] MEDS ORDERED: REMDESIVIR 100 MG in NS 250 ML IV SCH (18:00)
[2021-12-06] MEDS ORDERED: SODIUM CHLORIDE 0.9% INJ 10 ML SYR IV SCH (19:00)
[2021-12-06 19:21] LABS: BASO % 0.3 % (0.0-1.0); HEMATOCRIT 30.2 % (36.0-47.0); HEMOGLOBIN 10.4 g/dl (12.0-15.5); LYMPH # 0.8 10^3/uL (1.5-5.0); MEAN CORPUSCULAR HEMOGLOBIN 30.7 pg (27.0-33.0); MEAN CORPUSCULAR HGB CONC 34.4 g/dl (32.0-36.5); MEAN CORPUSCULAR VOLUME 89.1 fl (80.0-96.0); MONO # 0.6 10^3/uL (0.0-0.8); MONO % 8.5 % (2.0-8.0); NEUTROPHILS # 5.8 10^3/uL (1.5-8.5); NEUTROPHILS % 78.3 % (36.0-66.0); PLATELET COUNT, AUTOMATED 123 10^3/uL (150-450); RED BLOOD COUNT 3.39 10^6/uL (4.00-5.40); WHITE BLOOD COUNT 7.5 10^3/uL (4.0-10.0)
[2021-12-06 19:45] LABS: CALCIUM LEVEL 7.6 MG/DL (8.8-10.2); CREATININE FOR GFR 1.97 MG/DL (0.55-1.30)
[2021-12-06] MEDS: ceFAZolin SOD 2 GM in IV 1 EA IV SCH (20:05)
[2021-12-06] MEDS ORDERED: HYDROMORPHONE HCL 0.5 MG/ 0.5 ML SYRINGE (J1170 PER 1) IV ONE (21:00)
[2021-12-07] VITALS (15 sets, daily range): BP systolic 100–158; BP diastolic 56–90; O2SAT 93–97
[2021-12-07] MEDS: ceFAZolin SOD 2 GM in IV 1 EA IV SCH (04:54)
[2021-12-07 05:59] LABS: BASO % 0.4 % (0.0-1.0); HEMATOCRIT 28.9 % (36.0-47.0); HEMOGLOBIN 9.8 g/dl (12.0-15.5); LYMPH # 0.8 10^3/uL (1.5-5.0); LYMPH % 10.6 % (24.0-44.0); MEAN CORPUSCULAR HEMOGLOBIN 30.2 pg (27.0-33.0); MEAN CORPUSCULAR HGB CONC 33.9 g/dl (32.0-36.5); MEAN CORPUSCULAR VOLUME 88.9 fl (80.0-96.0); MONO # 0.5 10^3/uL (0.0-0.8); NEUTROPHILS # 6.4 10^3/uL (1.5-8.5); NEUTROPHILS % 81.1 % (36.0-66.0); PLATELET COUNT, AUTOMATED 127 10^3/uL (150-450); RED BLOOD COUNT 3.25 10^6/uL (4.00-5.40); WHITE BLOOD COUNT 7.8 10^3/uL (4.0-10.0)
[2021-12-07 06:13] LABS: INR 1.73; PROTHROMBIN TIME 20.7 SECONDS (12.7-14.5)
[2021-12-07 06:14] LABS: PARTIAL THROMBOPLASTIN TIME 47.4 SECONDS (25.9-37.0)
[2021-12-07 06:21] LABS: ALBUMIN 2.5 GM/DL (3.2-5.2); BILIRUBIN,DIRECT 0.8 MG/DL (0.0-0.2); BILIRUBIN,TOTAL 1.3 MG/DL (0.2-1.0); CALCIUM LEVEL 7.5 MG/DL (8.8-10.2); CREATININE FOR GFR 2.26 MG/DL (0.55-1.30); GLOMERULAR FILTRATION RATE 22.2 (>39); MAGNESIUM LEVEL 2.1 MG/DL (1.8-2.4); PHOSPHORUS LEVEL 2.4 MG/DL (2.5-4.9); POTASSIUM SERUM 4.1 MEQ/L (3.5-5.1); TOTAL PROTEIN 6.9 GM/DL (6.4-8.2)
[2021-12-07] MEDS ORDERED: MIDAZOLAM INJ 2MG/2ML VIAL (J2250 PER 1MG) IV ONE (08:15)
[2021-12-07] MEDS ORDERED: HALOPERIDOL 5MG/ML VIAL (J1630 PER 1) IM ONE (08:15)
[2021-12-07] MEDS ORDERED: LORazepam 2 MG/ML VIAL IV STA ×2 (08:21→11:16)
[2021-12-07] MEDS: HumaLOG INSULIN (NovoLOG) PER UNIT SC SCH (08:48)
[2021-12-07] MEDS: dexameTHASONE 4 MG/ML 1ML VIAL (J1100 PER 1MG) IV SCH (09:16)
[2021-12-07] MEDS ORDERED: AMIODARONE HCL 150 MG in IV 1 EA IV STA (10:07)
[2021-12-07] MEDS ORDERED: MORPHINE 2 MG/ML 1ML VIAL (J2270) IV ONE (11:20)
[2021-12-07] MEDS ORDERED: LORazepam 2 MG/ML VIAL As Ordered ONE (11:22)
[2021-12-07] MEDS ORDERED: MIDODRINE 2.5 MG TAB PO SCH (12:00)
[2021-12-07] MEDS ORDERED: SCOPOLAMINE 1MG TRANSDERMAL PATCH TOP PRN (13:25)
[2021-12-07] MEDS ORDERED: ONDANSETRON 4MG/2ML VIAL IV PRN (13:25)
[2021-12-07] MEDS ORDERED: HYOSCYAMINE SULFATE 0.125 MG SUBL TABLET PO PRN (13:25)
[2021-12-07] MEDS ORDERED: ATROPINE SULFATE 1% OP SOLN 2 ML BTL SL PRN (13:25)
[2021-12-07] MEDS ORDERED: BISACODYL 10 MG SUPP PR PRN (13:25)
[2021-12-07] MEDS ORDERED: FLEET ENEMA PR PRN (13:25)
[2021-12-07] MEDS ORDERED: OCTREOTIDE ACETATE 100MCG/ML VIAL **SC ADMINISTRATION ONLY SC SCH (14:00)
[2021-12-07] MEDS: MORPHINE 2 MG/ML 1ML VIAL (J2270) IV PRN ×2 (14:04→18:34)
[2021-12-07] MEDS: LORazepam 2 MG/ML VIAL IV PRN (18:39)
[2021-12-08] MEDS: LORazepam 2 MG/ML VIAL IV PRN ×3 (03:20→16:48)
[2021-12-08] MEDS: MORPHINE 2 MG/ML 1ML VIAL (J2270) IV PRN ×4 (03:20→21:14)
[2021-12-08 18:11] LABS: BODY FLUID CULTURE Not indicated. (.); LEGIONELLA ANTIGEN URINE Negative (Negative); ORGANISM ID Not indicated. (.); SPECIMEN SOURCE Urine (.); URINE STREP PNEUMONIAE ANTIGEN Negative (Negative)
[2021-12-09] MEDS: LORazepam 2 MG/ML VIAL IV PRN (02:45)
[2021-12-09] MEDS: MORPHINE 2 MG/ML 1ML VIAL (J2270) IV PRN ×5 (06:16→21:13)
[2021-12-10] MEDS: MORPHINE 2 MG/ML 1ML VIAL (J2270) IV PRN ×2 (00:21→05:08)
[2021-12-10] MEDS: LORazepam 2 MG/ML VIAL IV PRN ×2 (00:21→05:07)
== END 2021-12-10 13:00 | disposition expired | DRG 432 ==
LOC: M ED 19:40 → M ED INP 23:00 → ENRESERV 12-04 01:02 → M ICU 12-04 03:25
PROVIDERS: ADMIT Internal Medicine; ATTEND Internal Medicine
PROC: XW033E5 Introduction of Remdesivir Anti-infective into Peripheral Vein, Percutaneous Approach, New Technology Group 5 (ICD-10-PCS; 2021-12-05)
PROC: 3E0333Z Introduction of Anti-inflammatory into Peripheral Vein, Percutaneous Approach (ICD-10-PCS; 2021-12-05)
PROC: 30233J1 Transfusion of Nonautologous Serum Albumin into Peripheral Vein, Percutaneous Approach (ICD-10-PCS; 2021-12-05)
PROC: 0W9G3ZZ Drainage of Peritoneal Cavity, Percutaneous Approach (ICD-10-PCS; principal; 2021-12-05 09:00)
DX: K74.60 Unspecified cirrhosis of liver (principal); U07.1 COVID-19; J12.82 Pneumonia due to coronavirus disease 2019; I21.A1 Myocardial infarction type 2; K76.7 Hepatorenal syndrome; J96.01 Acute respiratory failure with hypoxia; J15.211 Pneumonia due to Methicillin susceptible Staphylococcus aureus; R18.8 Other ascites; K76.6 Portal hypertension; N17.9 Acute kidney failure, unspecified; R78.81 Bacteremia; J98.11 Atelectasis; Z68.41 Body mass index [BMI] 40.0-44.9, adult; Z51.5 Encounter for palliative care; Z66 Do not resuscitate; K72.90 Hepatic failure, unspecified without coma; I48.91 Unspecified atrial fibrillation; R31.9 Hematuria, unspecified; E66.01 Morbid (severe) obesity due to excess calories; I10 Essential (primary) hypertension; E11.9 Type 2 diabetes mellitus without complications; E78.5 Hyperlipidemia, unspecified; M10.9 Gout, unspecified; D69.6 Thrombocytopenia, unspecified; K75.81 Nonalcoholic steatohepatitis (NASH); R31.0 Gross hematuria; Z79.84 Long term (current) use of oral hypoglycemic drugs; Z79.899 Other long term (current) drug therapy; Z90.49 Acquired absence of other specified parts of digestive tract